=== PATIENT | male | born 1990 | race American Indian/Alaskan Native ===

== ENCOUNTER 2018-02-26 23:31 | Emergency (ER) | payer OTHER ==
[~2018-02-26] VITALS: Ht 172.7 cm; Wt 93.9 kg
[2018-02-27 00:36] LABS: POTASSIUM 3.1 mmol/L (3.6-5.2)
[2018-02-27 00:43] LABS: PLATELET COUNT 234 K/uL (142-355)
[2018-03-03 22:04] VITALS: BP 128/76; TEMP 98.6
== END 2018-03-03 22:10 | disposition home or self-care (01) ==
LOC: ED 23:31
PROVIDERS: Internal Medicine
DX: F20.0 Paranoid schizophrenia (principal)
CPT/HCPCS: 80053; 80307; 80320; 80329; 81000; 81002; 85027; 93005; 99285; J1630

== ENCOUNTER 2018-06-23 18:29 | Emergency (ER) | payer OTHER ==
[~2018-06-23] VITALS: Ht 172.7 cm; Wt 81.6 kg
[2018-06-23 20:03] LABS: PLATELET COUNT 254 K/uL (142-355)
[2018-06-23 20:26] LABS: POTASSIUM 3.2 mmol/L (3.6-5.2); SODIUM 138 mmol/L (136-145)
[2018-06-24 01:11] VITALS: BP 105/67; TEMP 98.2
== END 2018-06-24 01:19 | disposition home or self-care (01) ==
LOC: ED 18:29
PROVIDERS: Family Medicine
DX: E87.6 Hypokalemia (principal); R56.9 Unspecified convulsions; R45.4 Irritability and anger
CPT/HCPCS: 36415; 80053; 80307; 80320; 80329; 81000; 85027; 93005; 99285

== ENCOUNTER 2020-09-27 13:41 | Emergency (ER) | payer OTHER ==
[~2020-09-27] VITALS: Ht 172.7 cm; Wt 81.6 kg
[2020-09-27 13:50] VITALS: TEMP 98.4
[2020-09-27 14:02] LABS: PLATELET COUNT 343 K/uL (142-355)
[2020-09-27 16:06] VITALS: BP 118/78
== END 2020-09-27 16:10 | disposition home or self-care (01) ==
LOC: ED 13:41
PROVIDERS: Family Medicine
DX: R56.9 Unspecified convulsions (principal)
CPT/HCPCS: 80053; 85027; 93005; 99283

== ENCOUNTER 2021-01-28 13:14 | Emergency (ER) | payer OTHER ==
[~2021-01-28] VITALS: Ht 172.7 cm; Wt 81.6 kg
[2021-01-28 13:47] LABS: PLATELET COUNT 470 K/uL (142-355)
[2021-01-28 13:56] LABS: SODIUM 141 mmol/L (136-145)
[2021-01-28 14:01] LABS: PARTIAL THROMBOPLASTIN TIME 24.7 SECONDS (24.5-33.6)
[2021-01-28 14:44] VITALS: BP 118/77; TEMP 99
== END 2021-01-28 14:44 | disposition home or self-care (01) ==
LOC: ED 13:14
PROVIDERS: Hospitalist
DX: R56.9 Unspecified convulsions (principal)
CPT/HCPCS: 80053; 80320; 82550; 82553; 83880; 84484; 85027; 85610; 85730; 93005; 96365; 99284; J1953

== ENCOUNTER 2021-04-03 14:59 | Outpatient (CLI) | payer OTHER | END 2021-04-03 19:12 | disposition home or self-care (01) | LOC: RAD 14:59 | PROVIDERS: ATTEND Nurse Practitioner Family | DX: L03.011 Cellulitis of right finger (principal) ==

== ENCOUNTER 2021-07-23 15:59 | Emergency (ER) | payer OTHER ==
[~2021-07-23] VITALS: Ht 172.7 cm; Wt 81.6 kg
[2021-07-23] MEDS ORDERED: PROZAC10 MG PO (16:31)
[2021-07-23] MEDS ORDERED: LEVE500T5 PO (16:32)
[2021-07-23] MEDS ORDERED: ABILIFY MYCITE5 MG PO (16:33)
[2021-07-23] MEDS ORDERED: DIVA250T PO (16:33)
[2021-07-23 20:04] LABS: PLATELET COUNT 296 K/uL (142-355)
[2021-07-23 20:21] LABS: POTASSIUM 3.3 mmol/L (3.6-5.2)
[2021-07-23 21:59] VITALS: BP 140/95; TEMP 97.8
== END 2021-07-23 21:59 | disposition still patient (30) ==
LOC: ED 15:59
PROVIDERS: Emergency Medicine
DX: F20.89 Other schizophrenia (principal); F19.10 Other psychoactive substance abuse, uncomplicated; Z11.52 Encounter for screening for COVID-19; Z04.6 Encounter for general psychiatric examination, requested by authority
CPT/HCPCS: 36415; 80053; 80307; 80320; 80329; 81000; 85027; 87635; 96372; 99285; J1200; J1630; J2060; U0003